=== PATIENT | female | born 1995 | race African-American/Black ===

== ENCOUNTER 2025-02-23 15:28 | Emergency (ER) | payer MEDICAID ==
[~2025-02-23] VITALS: Ht 170.2 cm; Wt 55.0 kg
[2025-02-23 15:33] VITALS: O2SAT 99
[2025-02-23 16:08] VITALS: BP 118/68; PULSE 68; RESP 18; TEMP 36.8; O2SAT 100
== END 2025-02-23 19:01 | disposition left against medical advice (07) ==
LOC: ER 15:28
DX: N93.9 Abnormal uterine and vaginal bleeding, unspecified (principal); Z53.21 Procedure and treatment not carried out due to patient leaving prior to being seen by health care provider